=== PATIENT | female | born 2000 | race African-American/Black ===

== ENCOUNTER 2019-10-29 03:48 | Inpatient (IN) | payer OTHER ==
[~2019-10-29] VITALS: Ht 144.8 cm; Wt 66.9 kg
[2019-10-29] VITALS (70 sets, daily range): BP systolic 91–163; BP diastolic 50–90
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
[2019-10-29 06:57] LABS: HEMATOCRIT 37.7 % (36.0-47.0); HEMOGLOBIN 13.2 g/dl (12.0-15.5); MEAN CORPUSCULAR HEMOGLOBIN 32.2 pg (27.0-33.0); PLATELET COUNT, AUTOMATED 206 10^3/uL (150-450); WHITE BLOOD COUNT 11.3 10^3/uL (4.0-10.0)
[2019-10-29] MEDS ORDERED: PROMETHAZINE INJ 25 MG/ML VIAL (J2550) IV ONE (07:15)
[2019-10-29] MEDS ORDERED: BUTORPHANOL 2 MG/ML INJ (J0595) IV ONE (07:15)
--- NOTE | 2019-10-29 07:26 | IPNPDOC ---
Obstetrical Progress Note Date of Service Oct 29, 2019 Subjective To room for assessment of variable decelerations. Patient reports more pain and desires IV pain medications, she desires to try not to get an epidural during her delivery. Objective Vital Signs Date Time Temp Pulse Resp B/P (MAP) Pulse Ox O2 Delivery O2 Flow Rate FiO2 10/29/19 04:09 98.4 68 16 138/78 (98) Assessment Heart Rate (FHR): 120 Variability: Moderate Accelerations: Positive Decelerations: Variable Heart Rate Tracing: Category II Tocometer Contractions: Yes Frequency: regular Sterile Vaginal Examination Dilation: 5 cm Effacement (%): 70% Station: -2 Cervical Consistency: Soft Cervical Position: Posterior Postion/Presentation: Cephalic presentation (by exam) Assessment and Plan Status: Reassuring Group B Streptococcus: Negative Anticipate: Vaginal Delivery Additional Comments CAT II tracing for variable decelerations but moderate variability and good return to baseline, reactive, overall reassuring given good progress. SVE 5/75/- 2/. Patient desires pain medications, will order stadol and phenergan for use after intrauterine resuscitation. Will continue to closely monitor. VESTA MENDEZ DO Oct 29, 2019 07:26
[2019-10-29] MEDS ORDERED: FENTANYL 2MCG/ML ROPIVACAINE 0.2% IN 0.9% NACL 100ML IVBAG As Ordered ONE (10:31)
[2019-10-29] MEDS ORDERED: LR 1,000 ML IV SCH (11:52)
[2019-10-29] MEDS ORDERED: OXYTOCIN DRIP 30 UNITS in IV 1 EA IV SCH ×2 (12:00→21:36)
--- NOTE | 2019-10-29 12:16 | IPNPDOC ---
Obstetrical Progress Note Date of Service Oct 29, 2019 Subjective Wood of care at sign out at [address] Perez. Labor progress note. Assumed care of Lilia, a 19yo at 39+6wks gestation, who was admitted in early labor this morning. She has received a 1x dose of stadol (2mg) and phenergan (12.5mg) for pain and is now requesting an epidural. She denies any other concerns at this time. Objective O: VSS, afebrile, normotensive VE: 5/90/-3, minimal change from previous exam at 0715 FHR 120s, moderate variability, no accels or decelerations noted CTX by TOCO: q 2.5-7 minutes, irregular and mild by palpation, soft resting tone Vital Signs Date Time Temp Pulse Resp B/P (MAP) Pulse Ox O2 Delivery O2 Flow Rate FiO2 10/29/19 10:04 68 109/59 (76) 10/29/19 08:20 18 10/29/19 04:09 98.4 Sterile Vaginal Examination Postion/Presentation: Cephalic presentation Assessment and Plan Status: Reassuring Group B Streptococcus: Negative Anticipate: Vaginal Delivery Additional Comments A: 29yo at 39+6wks in early labor with slowed progress. Category I FHT. P: Epidural now Start pitocin per low dose protocol at completion of epidural CEFM x2 PO and IV hydration Continue to monitor maternal/ status Reassess in 4 hours after pitocin started or sooner PRN Anticipate Consult with OB as indicated ROSLYN LÓPEZ CNM Oct 29, 2019 11:57
[2019-10-29] MEDS ORDERED: ePHEDrine SULFATE 25 MG/5 ML(5MG/ML) SYRINGE As Ordered ONE (12:19)
[2019-10-29] MEDS: ePHEDrine SULFATE 25 MG/5 ML(5MG/ML) SYRINGE IV PRN ×4 (12:29→16:47)
[2019-10-29] MEDS ORDERED: NALOXONE INJ 0.4MG/1ML VIAL (J2310 PER 1MG) IV PRN (12:45)
[2019-10-29] MEDS ORDERED: ONDANSETRON 4MG/2ML VIAL IV PRN ×2 (12:45→21:45)
[2019-10-29] MEDS ORDERED: diphenhydrAMINE 50MG/ML VIAL (J1200) IV PRN (12:45)
[2019-10-29] MEDS ORDERED: REFRIGERATOR IV KEYS XX PRN (12:45)
[2019-10-29] MEDS ORDERED: EPIDURAL COMMENT XX SCH (12:45)
[2019-10-29] MEDS ORDERED: LACTATED RINGER'S 1000 ML IV PRN (12:45)
[2019-10-29] MEDS ORDERED: EPIDURAL/PCA KEYS XX PRN (12:45)
[2019-10-29] MEDS: FENTANYL/ROPIVACAINE/NACL BAG 100 ML EPIDURAL SCH ×2 (13:02→19:51)
--- NOTE | 2019-10-29 16:41 | IPNPDOC ---
Obstetrical Progress Note Date of Service Oct 29, 2019 Subjective Labor Progress Note 19yo at 39+6wks, s/p epidural and very comfortable. She denies feeling any pain or contractions. Objective O: VSS, afebrile, normotensive Pitocin running at 10mu/min VE: 7/90/-2, AROM at 1605, clear fluid Pitocin turned down to 6mu/min FHR: 130s, moderate variability. Shortly after AROM, pt noted to start having variable decelerations, deepest joey to 60. Pt quickly repositioned, O2 at 10L via NRB, LR bolus started. Pt started to feel pressure with contractions and noted to be 8/90/-1. CTX q2-6 minutes Vital Signs Date Time Temp Pulse Resp B/P (MAP) Pulse Ox O2 Delivery O2 Flow Rate FiO2 10/29/19 13:36 67 118/58 (78) 10/29/19 10:55 18 10/29/19 04:09 98.4 Assessment Heart Rate Tracing: Category II Sterile Vaginal Examination Postion/Presentation: Cephalic presentation Assessment and Plan Status: Reassuring Group B Streptococcus: Negative Anticipate: Vaginal Delivery Additional Comments A: 19yo at 39+6wks in active labor. Category II FHT d/t variable decelerations and interventions ongoing. P: Continue interventions for Category II FHT Close maternal/ monitoring CEFM x2 Will sign off to oncoming OB Anticipate ROSLYN KOEHLER CNM Oct 29, 2019 16:41
[2019-10-29] MEDS ORDERED: SERTRALINE HCL 25 MG TABLET PO ONE (17:00)
--- NOTE | 2019-10-29 21:43 | DNPDOC ---
[facility] Delivery Note Delivery Note DATE OF DELIVERY: 10/29/2019 PREDELIVERY DIAGNOSIS: 39-6/7 weeks' gestation and labor. POST DELIVERY DIAGNOSIS: Delivered. PROCEDURE: Spontaneous vaginal delivery. SALES PROMOTION OFFICER: Dr. Marcia Lemon ANESTHESIA: Epidural. ESTIMATED BLOOD LOSS: 100 mL. FINDINGS: 6 pound 5 ounce 2870gm boy , Score 8/9, nuchal cord times 1. DELIVERY SUMMARY: Patient was complete and pushing upon my arrival. Spontaneous vaginal delivery of MUSA head over intact perineum. Nose and mouth were bulb suction. Nuchal cord was noted and reduced. Shoulders and then body was easily delivered without problems at 2031. Baby was handed on mother's abdomen. Pitocin was bolused. Cord was clamped x2 and cut when pulsation stopped. Cord blood was obtained. Placenta was delivered spontaneously and intact with a 3 vessel cord at 2034. Perineum and vagina was inspected and found to have no lacerations. Repair was not needed. Lap, instrument, and needle count was correct. Mom and baby were bonding. Marcia Lemon MD Oct 29, 2019 21:43
[2019-10-29] MEDS ORDERED: DIBUCAINE 1% OINTMENT 30GM TOP PRN (21:45)
[2019-10-29] MEDS ORDERED: SIMETHICONE 80 MG CHEW TAB PO PRN (21:45)
[2019-10-29] MEDS ORDERED: MOM 30ML SUSPENSION UDC PO PRN (21:45)
[2019-10-29] MEDS ORDERED: ANUSOL HC CREAM 30GM TOP PRN (21:45)
[2019-10-29] MEDS ORDERED: RHOGAM 300 MCG (1500 IU) INJ (J2790) IM SCH (21:45)
[2019-10-29] MEDS ORDERED: MEASLES,MUMPS,RUBELLA VACCINE INJ (MMR-II) (90707) SC SCH (21:45)
[2019-10-29] MEDS ORDERED: CALCIUM CARBONATE 500 MG CHEW U/D PO PRN (21:45)
[2019-10-29] MEDS ORDERED: diphenhydrAMINE 25MG CAP PO PRN (21:45)
[2019-10-29] MEDS ORDERED: METHYLERGONOVINE MALEATE 0.2 MG TAB PO PRN (21:45)
[2019-10-29] MEDS ORDERED: IBUPROFEN 800 MG TAB PO PRN (21:45)
[2019-10-29] MEDS ORDERED: ONDANSETRON 4 MG ORAL DISINTEGRATING TAB PO PRN (21:45)
[2019-10-29] MEDS: ACETAMINOPHEN 500 MG TAB PO PRN (23:13)
[2019-10-30 05:41] VITALS: BP 113/56
--- NOTE | 2019-10-30 07:17 | IPNPDOC ---
Progress Note Date of Service: Oct 30, 2019 Day#: 1 Progress Note SUBJECT: Patient is a 19-year-old 1 now Para 1 status post uncomplicated spontaneous vaginal delivery without vaginal laceration, doing well day # 1. She has been ambulating, voiding spontaneously without issue and tolerating regular diet. Breast feeding without issue. Reports lochia is like a normal period. Patient is ambulating well. Reports some cramping with . Has no pain. OBJECTIVE: VITAL SIGNS: Within normal limits, afebrile. Alert and oriented times three. Breath sounds clear to auscultation. Heart rate: Regular rate and rhythm, no murmurs, rubs or gallops. Abdomen: Fundus firm at U-2. Soft, NTTP. Perineum: intact, Minimal lochia. LE: No edema, NT ASSESSMENT: Patient is a 19-year-old 1 now Para 1 status post uncomplicated spontaneous vaginal delivery without vaginal laceration, doing well day # 1. Vitals within normal limits, afebrile, hemodynamically stable with no evidence of infection. PLAN: 1. Continue care. 2. Tylenol and Motrin for pain. 3. Encourage breast feeding and ambulation. VS, I&O, 24H, Fishbone Vital Signs/I&O Vital Signs Date Time Temp Pulse Resp B/P (MAP) Pulse Ox O2 Delivery O2 Flow Rate FiO2 10/29/19 20:53 98.1 117 18 163/67 (99) Laboratory Data 24H LABS Laboratory Tests 2 10/29/19 06:14: Nucleated Red Blood Cells % (auto) 0.0, Syphilis Serology NONREACTIVE 10/29/19 06:14: Serology Scanned Report Hepatitis B Testing CBC/BMP Laboratory Tests 10/29/19 06:14 Marcia Lemon MD Oct 29, 2019 21:46
[2019-10-30 08:30] VITALS: BP 113/56
[2019-10-30] MEDS: PRENATAL VITAMINS CHEWABLE TABLET PO SCH (09:33)
[2019-10-30] MEDS: DOCUSATE SODIUM 100 MG CAP PO SCH ×2 (09:33→20:56)
[2019-10-30] MEDS: SERTRALINE HCL 25 MG TABLET PO SCH (09:33)
[2019-10-30 18:22] VITALS: BP 129/81
[2019-10-31 06:00] VITALS: BP 144/80
--- NOTE | 2019-10-31 07:27 | IPNPDOC ---
Progress Note Date of Service: Oct 31, 2019 Day#: 2 Progress Note SUBJECT: 19yo PPD2 s/p . She has been ambulating, voiding spontaneously without issue and tolerating regular diet. Breast feeding without issue. Reports lochia is like a normal period. Patient is ambulating well. Denies any pain. Voiding and stooling without difficulty. Denied n/v/d, cp, sob, carlson, visual changes, abd pain, f/c, heavy vb, dc, urinary sx. OBJECTIVE: VITAL SIGNS: reviewed, mild ranage BP, afebrile. Alert and oriented times three. Breath sounds clear to auscultation. Heart rate: Regular rate and rhythm, no murmurs, rubs or gallops. Abdomen: Fundus firm at U-2. Soft, NTTP. Minimal lochia. ASSESSMENT: 19yo PPD2 s/p . Vitals with mild range BP, otherwise normal and afebrile, hemodynamically stable with no evidence of infection. Patient with prior MR BPs in labor, now meeting criteria for GHTN diagnosis. Denied si/sx of pre-elcampsia at this time. PLAN: 1. Discharge to home today. 2. Tylenol and Motrin for pain. 3. Encourage breast feeding and ambulation. 4. depo for contraception before discharge 5. Routine PP visit in 6 weeks in clinic. 6. Discussed return precautions at length. 7. pre-eclampsia labs before discharge, if normal may go with a BP check in 72h VS, I&O, 24H, [facility] Vital Signs/I&O Vital Signs Date Time Temp Pulse Resp B/P (MAP) Pulse Ox O2 Delivery O2 Flow Rate FiO2 10/31/19 06:00 97.3 62 17 144/80 (101) 100 Room Air VESTA MENDEZ DO Oct 31, 2019 07:27
[2019-10-31] MEDS ORDERED: medroxyPROGESTERone ACET IM SUSP 150 MG/ML VIAL (J1050) IM ONE (07:45)
[2019-10-31] MEDS: PRENATAL VITAMINS CHEWABLE TABLET PO SCH (07:55)
[2019-10-31] MEDS: DOCUSATE SODIUM 100 MG CAP PO SCH (07:55)
[2019-10-31] MEDS: ACETAMINOPHEN 500 MG TAB PO PRN (07:56)
[2019-10-31 08:23] LABS: HEMATOCRIT 37.2 % (36.0-47.0); HEMOGLOBIN 12.4 g/dl (12.0-15.5); MEAN CORPUSCULAR HEMOGLOBIN 31.5 pg (27.0-33.0); MEAN CORPUSCULAR HGB CONC 33.3 g/dl (32.0-36.5); MEAN CORPUSCULAR VOLUME 94.4 fl (80.0-96.0); PLATELET COUNT, AUTOMATED 173 10^3/uL (150-450); RED BLOOD COUNT 3.94 10^6/uL (4.00-5.40); WHITE BLOOD COUNT 11.9 10^3/uL (4.0-10.0)
[2019-10-31 08:45] LABS: ALBUMIN 2.3 GM/DL (3.2-5.2); ALT/SGPT 22 U/L (12-78); BILIRUBIN,TOTAL 0.2 MG/DL (0.2-1.0); BLOOD UREA NITROGEN 16 MG/DL (7-18); CALCIUM LEVEL 8.9 MG/DL (8.5-10.1); CARBON DIOXIDE LEVEL 27 MEQ/L (21-32); CHLORIDE LEVEL 106 MEQ/L (98-107); CREATININE FOR GFR 0.58 MG/DL (0.55-1.30); GLOMERULAR FILTRATION RATE > 60.0 (>60); GLUCOSE, FASTING 76 MG/DL (70-100); POTASSIUM SERUM 4.1 MEQ/L (3.5-5.1); SODIUM LEVEL 140 MEQ/L (136-145); TOTAL PROTEIN 5.9 GM/DL (6.4-8.2)
[2019-10-31] MEDS: SERTRALINE HCL 25 MG TABLET PO SCH (09:12)
[2019-10-31] MEDS ORDERED: PROC1CRE5 TOP (11:24)
[2019-10-31] MEDS ORDERED: DOCU100C16 PO (11:24)
[2019-10-31] MEDS ORDERED: IBUP80TA PO (11:24)
[2019-10-31] MEDS ORDERED: SERT25TA21 PO (11:24)
[2019-10-31] MEDS ORDERED: DIBU10OI TOP (11:24)
--- NOTE | 2019-10-31 11:27 | OBDS ---
[facility] Obstetrical Discharge Sum. Obstetrical Discharge Summary Date: Oct 31, 2019 VDRL: Non-Reactive Rh: Positive Rubella: Immune Sex: Male Weight: grams (2870) Anesthesia: Regional Anesthesia A/P, Post Course List any complications Admission diagnosis: active labor, term Discharge diagnosis: active labor, term Condition at Discharge: stable Discharge Instructions: Home Activity: ad khanh Diet: regular Medications: see med rec Follow-up: 6wks Hospital course: Had routine . PPC uncomplicated. Marcia Lemon MD Oct 31, 2019 11:27
--- NOTE | 2019-11-11 14:29 | IPN ---
DATE: 10/30/2019 This patient requested circumcision of her male . After discussing risks and benefits of circumcision, the medical and the nonmedical indications, the penile block, and aftercare, expressed understanding of penile maura and aftercare, signed the consent form. All questions were answered. A 20-minute discussion. We now await the clearance by the die designer apprentice. RAIN
== END 2019-10-31 12:10 | disposition home or self-care (01) | DRG 807 ==
LOC: M LDO 03:48 → M LDI 06:03 → M OBS 22:58
PROVIDERS: ADMIT Obstetrics & Gynecology; ATTEND Obstetrics & Gynecology
PROC: 10E0XZZ Delivery of Products of Conception, External Approach (ICD-10-PCS; principal; 2019-10-29)
PROC: 10907ZC Drainage of Amniotic Fluid, Therapeutic from Products of Conception, Via Natural or Artificial Opening (ICD-10-PCS; 2019-10-29)
DX: O99.344 Other mental disorders complicating childbirth (principal); Z37.0 Single live birth; F31.9 Bipolar disorder, unspecified; F32.9 Major depressive disorder, single episode, unspecified; O76 Abnormality in fetal heart rate and rhythm complicating labor and delivery; O69.81X0 Labor and delivery complicated by cord around neck, without compression, not applicable or unspecified; O13.4 Gestational [pregnancy-induced] hypertension without significant proteinuria, complicating childbirth